=== PATIENT | female | born 1955 | race Two or more races ===

== ENCOUNTER 2023-07-12 10:03 | Emergency (ER) | payer MEDICARE ==
[~2023-07-12] VITALS: Ht 165.1 cm; Wt 82.0 kg
[2023-07-12 10:15] VITALS: TEMP 98.4
[2023-07-12 10:25] LABS: COVID AG,FIA SOURCE NASAL SWAB
[2023-07-12 11:06] LABS: SARS-COV2 (COVID) ANTIGEN,FIA Negative (Negative)
[2023-07-12 11:08] LABS: INFLUENZA TYPE A NEGATIVE FOR TYPE A (NEGATIVE); INFLUENZA TYPE B NEGATIVE FOR TYPE B (NEGATIVE)
[2023-07-12] MEDS ORDERED: ACET-3385 PO (11:42)
[2023-07-12] MEDS ORDERED: BENZ-227 PO (11:42)
[2023-07-12] MEDS: BENZONATATE 100 MG CAPSULE PO ONE (11:55)
[2023-07-12] MEDS: ALBUTEROL SULFATE HFA 90 MCG/PUFF 8 GM INHALER IH ONE (11:56)
[2023-07-12 11:57] VITALS: BP 106/63
[2023-07-12 12:00] VITALS: PULSE 70; RESP 18; O2SAT 96
== END 2023-07-12 12:07 | disposition home or self-care (01) ==
LOC: EMS 10:03
DX: R05.9 Cough, unspecified (principal); I10 Essential (primary) hypertension; Z20.822 Contact with and (suspected) exposure to COVID-19
CPT/HCPCS: 99284; 71045; 87426; 87804; 94640; J3535